=== PATIENT | male | born 1935 | race Caucasian/White ===

== ENCOUNTER 2020-09-13 10:58 | Emergency (ER) | payer OTHER, MEDICARE ==
[~2020-09-13] VITALS: Ht 175.3 cm; Wt 62.6 kg
[~2020-09-13 10:58] MED LIST: ALBU4 PO; ALBU90OI6 INH; BUDE6HFA INH; CHOL10002 PO; FISH1000 PO; FLUT110OIA INH; FORM12IH IH; MONT10T PO; Mucinex100 MG PO; PRED20 PO; Perforomis20 MCG/2 M INH; Prednisone20 MG PO; TIOT18 IH; Ventolin Soln3 ML INH; [UNRECOGNIZED DRUG - OTHER] TOP; [UNRECOGNIZED DRUG - REMARK]
[2020-09-13] MEDS ORDERED: Norco 5-325 Ta1 EACH PO (11:21)
[2020-09-13] MEDS ORDERED: PROAIR DIGIHAL90 MCG INH (11:24)
[2020-09-13 11:40] LABS: BASOPHILS ABSOLUTE AUTO 0.02 K/mm3 (0.00-0.23); BASOPHILS PERCENT AUTO 1 % (0-2); EOSINOPHILS ABSOLUTE AUTO 0.13 K/mm3 (0.00-0.68); EOSINOPHILS PERCENT AUTO 5 % (0-6); Hematocrit 44.2 % (37.0-53.0); Hemoglobin 14.6 g/dL (13.5-17.5); IMMATURE GRAN ABSOLUTE AUTO 0.01 K/mm3 (0.00-0.10); IMMATURE GRAN PERCENT AUTO 0 % (0-1); LYMPHOCYTES ABSOLUTE AUTO 1.16 K/mm3 (0.84-5.20); LYMPHOCYTES PERCENT AUTO 40 % (21-46); MONOCYTES ABSOLUTE AUTO 0.35 K/mm3 (0.16-1.47); MONOCYTES PERCENT AUTO 12 % (4-13); Mean Corpuscular HGB 32.1 pg (26.0-34.0); Mean Corpuscular Volume 97 fL (80-100); Mean Platelet Volume 9.5 fL (9.1-12.4); NEUTROPHILS ABSOLUTE AUTO 1.24 K/mm3 (1.96-9.15); NEUTROPHILS PERCENT AUTO 43 % (41-73); Platelet Count 210 K/mm3 (150-400); RDW Coefficient Variation 13.2 % (11.7-14.2); RDW Standard Deviation 47.7 fL (35.1-46.3); Red Blood Cell Count 4.55 M/mm3 (4.30-5.90); White Blood Cell Count 2.91 K/mm3 (4.00-11.30)
[2020-09-13 11:55] LABS: Alanine Aminotransfer (ALT/SGP 31 U/L (12-78); Albumin, Blood 3.8 g/dL (3.4-5.0); Albumin/Globulin Ratio 1.1 (0.8-1.8); Alk Phos 91 U/L (50-136); Anion Gap 4 mmol/L (6-16); Aspartate Aminotrans (AST/SGOT 24 U/L (12-37); Bilirubin, Total 0.7 mg/dL (0.1-1.0); Blood Urea Nitrogen 18 mg/dL (8-24); Bun/Creatinine Ratio 27.2 (12.0-20.0); CO2, Blood 33 mmol/L (21-32); Chloride, Blood 98 mmol/L (98-108); Creatinine, Blood 0.66 mg/dL (0.60-1.20); Globulin, Blood 3.5 g/dL (2.2-4.0); Glomerular Filtration Rate >60 (60-); Glucose, Blood 103 mg/dL (70-99); Potassium, Blood 4.7 mmol/L (3.5-5.5); Sodium, Blood 135 mmol/L (136-145); Total Protein, Blood 7.3 g/dL (6.4-8.2); Troponin I <0.015 ng/mL (0.000-0.040)
[2020-09-13] MEDS ORDERED: AZIT250 PO (12:43)
[2020-09-13] MEDS ORDERED: PRED20 PO (12:43)
== END 2020-09-13 14:55 | disposition home or self-care (01) ==
LOC: ER 10:58
PROVIDERS: Emergency Medicine
DX: J44.1 Chronic obstructive pulmonary disease with (acute) exacerbation (principal); F17.290 Nicotine dependence, other tobacco product, uncomplicated; Z88.0 Allergy status to penicillin; Z79.52 Long term (current) use of systemic steroids; Z79.899 Other long term (current) drug therapy
CPT/HCPCS: 71045; 80053; 84484; 85025; 93005; 93010; 96374; 99285-25; J2930

== ENCOUNTER 2020-10-24 10:24 | Emergency (ER) | payer OTHER, MEDICARE ==
[~2020-10-24] VITALS: Ht 175.3 cm; Wt 62.6 kg
[~2020-10-24 10:24] MED LIST changes: +AZIT250 PO; +Norco 5-325 Ta1 EACH PO; +PROAIR DIGIHAL90 MCG INH
[2020-10-24] MEDS ORDERED: HYDHCL25 PO (11:32)
== END 2020-10-24 11:47 | disposition home or self-care (01) ==
LOC: ER 10:24
DX: R21 Rash and other nonspecific skin eruption (principal); J44.9 Chronic obstructive pulmonary disease, unspecified; F17.290 Nicotine dependence, other tobacco product, uncomplicated; Z88.0 Allergy status to penicillin; Z79.899 Other long term (current) drug therapy
CPT/HCPCS: 99283